=== PATIENT | male | born 1955 | race Caucasian/White ===

== ENCOUNTER 2023-07-19 14:06 | Inpatient (IN) | payer MEDICARE, SELFPAY ==
[2023-07-19] VITALS (15 sets, daily range): BP systolic 82–159; BP diastolic 77–114
[2023-07-19 11:21] LABS: % Basophils 0.5 % (0-2); % Eosinophils 1.2 % (0-6); % Immature Granulocytes 0.2 % (0-0.5); % Monocytes 7.5 % (1.7-9.3); % Neutrophils 74.6 % (42.2-75.2); Absolute Eosinophils 0.1 10^3/uL (0-0.7); Absolute Lymphocytes 1.4 10^3/uL (1.2-3.4); Absolute Monocytes 0.7 10^3/uL (0.1-0.6); Absolute Neutrophils 6.5 10^3/uL (1.4-6.5); Hematocrit 48.9 % (39.0-52.0); Hemoglobin 16.8 g/dL (13.0-18.0); Mean Corp Hgb Conc. 34.4 g/dL (33.0-37.0); Mean Corpuscular Hgb 31.2 pg (27.0-31.0); Mean Corpuscular Volume 90.7 fL (80.0-94.0); Mean Platelet Volume 9.8 fL (7.4-10.4); Nucleated Red Blood Cells % 0 % (-); Platelet Count 188 10^3/uL (130-400); Red Blood Cell Count 5.39 10^6/uL (4.70-6.10); Red Cell Dist. Width 11.8 % (11.5-14.5); White Blood Cell Count 8.7 10^3/uL (4.8-10.8)
--- NOTE | 2023-07-19 11:23 | ED.GENMED ---
History of Present Illness
General
Chief Complaint: Breathing Problem
Time Seen by Provider: 07/19/23 11:04
Travel History
Have you had any contact with someone who has COVID-19?: Yes
Comment: shortness of breath
Do you have any symptoms of coronavirus? Fever > 100 degrees, chills, cough, shortness of breath, sore throat, loss of taste or smell, muscle aches, or headache?: Yes
Symptoms:: shortness of breath
History of Present Illness
History of Present Illness:
68-year-old male with history of hypertension presents to the emergency department for evaluation of shortness of breath particular with exertion over the past 1 to 2 days. He notes that approximate 8 days ago he developed flulike symptoms and
tested positive for COVID-19 the following day. He felt profoundly short of breath over the past 2 days with any minimal exertion, was noted to be saturating in the 70s on room air with exertion by EMS. Arrives on 4 L nasal cannula in the mid 90s.
He denies any chest pain at this time. Flulike symptoms have improved. Denies any productive cough. No leg swelling or recent prolonged travel/prolonged immobilization.
Past History
Past History
ED Past Medical History: HTN, Hypercholesterolemia and Other (BPH, diverticulosis)
ED Past Surgical History: Tonsilectomy
Social History
Tobacco: Non-smoker
Alcohol: None
Drug: None
Personal:
Living: with family
Employment: Employed
Review of Systems
Review of Systems
Allergies reviewed?: Yes
All Other Systems: ROS reviewed and negative except as documented in HPI and ROS
Phy Exam
Physical Exam
Physical Exam:
GEN: Well appearing, NAD, WDWN
Eyes: PERRLA, EOMs intact, no scleral icterus
HENT: NCAT, oral mucosa moist
Lungs: CTAB, no wheezes, rales, rhonchi, normal chest wall excursion
Cardiac: RRR, no M/R/G, no peripheral edema. Radial pulses 2+ bilat
Abdomen: S, NT, ND, NABS, no masses or hepatosplenomegaly
Neuro: AO x 3, no focal deficits to BUE/BLE, normal sensation throughout
MSK: No gross deformity or ecchymosis.
Skin: No rashes, petechiae. Normal color, no pallor or jaundice.
Psych: Calm, cooperative, proper hygiene
Scores
Heart Failure Risk
Heart Failure Risk Score: Not Applicable
Course
Orders/Labs/Results
Orders:
Orders
07/20/22 06:00
Echo 2D MMode Color/Doppler Urgent
Reason for Study: Saddle PE; need to eval right sided pressures
Comment: pt not available 07/19/23 in [facility]
07/19/23 11:07
Electrocardiogram (*1) Urgent
Reason for Study: Shortness of Breath
EKG- Treatment ONCE
07/19/23 11:08
CMP [Comprehensive Metabolic Panel] Urgent
Complete Blood Count/With Diff Urgent
07/19/23 11:15
CR Chest - 2 Views Urgent
Comment:
Reason For Exam: SOB, COVID +
07/19/23 11:18
NT-proBNP Urgent
Troponin I Urgent
07/19/23 11:57
CT Chest Pe Study Urgent
Comment:
Reason For Exam: hypoxia, clear CXR, COVID +
07/19/23 13:11
PTT Stat
Prothrombin Time Stat
Heparin 8,000 units IV NOW STA
Nursing to Place Non Medication Order As Directed
Physician Order: PTT 6 hours after initial start of Heparin infusion
Above order entered?: Yes
07/19/23 13:15
Heparin 84163 Units/250 ml 25,000 units in 250 ml IV PER PROTOCOL
Weight to be used for heparin protocol in kilograms (kg):: 100.2
Protocol:: DVT/PE
PTT Goal Range to be used:: PTT 73 to 111 seconds
Order type:: Initial
INITIAL Infusion Dose (UNITS/KG/hr) & then follow protocol:: 18 units/kg/hr
Infusion Dose in UNITS/hr & then follow protocol (UNITS/hr):: 1,800
INFUSION RATE in mL/hr & then follow protocol (mL/hr):: 18
For DVT/PE algorithm, re-bolus for low PTT?: Yes
PTT less than or equal to 64 seconds:: Re-bolus 80 units/kg (max 10,000units). Increase by 400 units/hr
(+ 4mL/hr)
PTT 64.1 to 72.9 seconds:: Re-bolus 40 units/kg (max 5,000 units). Increase by 200 units/hr
(+ 2mL/hr)
PTT 73 to 111 seconds:: Target Range. No change in rate.
PTT 111.1 to 130.9 seconds:: Decrease rate by 200 units/hr (- 2 mL/hr)
PTT 131 to 199.9 seconds:: HOLD for 1 hr. Then decrease by 300 units/hr (- 3mL/hr)
PTT greater than or equal to 200 seconds:: HOLD for 2 hrs & Notify Provider. Then decrease by 400 units/hr
(- 4mL/hr)
Lab follow-up:: Each change, PTT q6h until 2 consecutive are therapeutic. Then
PTT daily.
07/19/23 13:17
Heparin 8,000 units IV PRN PRN
07/19/23 13:18
Heparin 4,000 units IV PRN PRN
07/19/23 13:30
Venous Doppler Lwr Ext Bilat [US Periph Venous LOWER Ext Paul] Urgent
Comment:
Reason For Exam: Saddle PE, need to assess for DVT
07/19/23 13:51
Admit/Transfer Patient As Directed
Co-Sign Provider:
Level of Care: Inpatient admission
Assign to:: ICU
Physician / Group: pasricha/medicine
Diagnosis: saddle pe
Reason for Hospitalization: saddle pe
Expected length of stay greater than two midnights?: Yes
ELOS- Estimated Length of Stay in days: 3
I certify the patient meets the requirements for IP care: Yes
07/19/23 13:54
Code Status As Directed
Resuscitation Status: Full Code
07/19/23 14:00
[facility] CONSULT Urgent
Consulting Provider: Ryan La
Was physician already notified: Yes
Reason for consult: saddle PE
Flush (0.9% Sodium Chloride) [Flush (Nss)] See Dose Instructions IV PER PROTOCOL
07/19/23 19:20
PTT Urgent
Abnormal Lab Results
07/19/23 07/19/23
11:08 11:18
MCH 31.2 H pg
(27.0-31.0)
Absolute Monos (auto) 0.7 H 10^3/uL
(0.1-0.6)
Lymphocytes % 16.0 L %
(20.5-51.1)
Glucose 179 H mg/dl
(70-99)
Troponin I 0.100 H* ng/ml
07/19/23 11:08
07/19/23 11:08
Vital Signs
Initial and Last Documented VS:
Initial Vital Signs
Temp Pulse Resp Pulse Ox
97.7 F 72 20 86
07/19/23 11:04 07/19/23 11:04 07/19/23 11:04 07/19/23 11:04
Last Documented Vital Signs
Temp Pulse Resp BP Pulse Ox
98.1 F 82 16 120/88 96
07/19/23 18:00 07/19/23 18:00 07/19/23 18:00 07/19/23 18:00 07/19/23 18:00
MDM/Problems Addressed
MDM/Problems Addressed:
68-year-old male presents with worsening shortness of breath over the past week after being diagnosed with COVID-19. Exam patient's lungs are clear initial chest x-ray independently interpreted by me is negative for acute pathology. Given the
clear lungs and the marked degree of hypoxia prehospital concern was immediately transitioned to pulmonary embolism. The patient was sent urgently for a CT of the chest which revealed a saddle pulmonary embolism. Case was then promptly reviewed
with interventional radiology as well as oil well cable tool driller/pulm, we are in agreement that the patient is a good candidate for/thrombolysis. Will be admitted to the hospitalist service for further management, heparin was started initially in the emergency
department to be continued until the procedure
*Critical Care Note
Total Time (30-74mins, 75-104mins- exclusive of procedures): 60 minutes
comment:
Critical care time: 60 minutes
Critical care time was exclusive of: Separately billable procedures, treating other patients, and teaching time
Critical care was necessary to treat or prevent imminent or life-threatening deterioration of the following conditions: Saddle pulmonary embolism
Critical care time spent personally by me on the following activities:
[x] Review of old charts
[x] Obtaining history from patient or surrogate
[x] Ordering and review of the laboratory studies
[x] Ordering and review of radiographic studies
[x] Ordering and performing treatments and interventions
[x] Patient patient's response to treatment
[x] Development of treatment plan with patient or surrogate
Update Note
Update Note:
1308: PE study reviewed by myself concerning for saddle PE. PERT alert called by community specialist
1313: [employer] message sent to both IR and pulm operations supervisor regarding saddle PE. Pt remains hemodynamically stable, may be suitable for thrombolysis
1315: Radiology confirms saddle PE w/ RV strain
1327: Still awaiting word regarding thrombolysis decision from pulm/IR. Hospitalist updated as pt will need ICU bed.
ED Attending Note
-
Portions of this chart may have been created with voice recognition software.� Occasional wrong word or��sound alike� substitutions may have occurred due to the inherent limitations of voice recognition software.
Discharge Plan
Departure
Patient Disposition: Admit
Date of Disposition: 07/19/23
Time of Disposition: 13:28
Admit to: ICU
Presentation/result/management discussed w/ accepting MD/DO: Hospitalist
Discharge Problem:
Acute saddle pulmonary embolism
Interventions
Interventions:
*Risk Screen - Suicide Last Done: 07/19/23 11:05
*General Assessment Last Done: 07/19/23 11:05
*Neglect/Abuse Screening Last Done: 07/19/23 11:05
*ED COVID-19 Vaccine History Last Done: 07/19/23 11:05
ED- Cardiac Assessment Last Done: 07/19/23 11:06
ED- Pulmonary Assessment Last Done: 07/19/23 11:06
[2023-07-19 11:34] LABS: ALT (SGPT) 28 U/L (0-50); AST (SGOT) 28 U/L (17-59); Albumin 4.2 g/dl (3.5-5.0); Alkaline Phosphatase 108 U/L (38-126); Blood Urea Nitrogen 14 mg/dl (9-20); Calcium 9.2 mg/dl (8.4-10.2); Carbon Dioxide 25 mmol/L (22-30); Chloride 105 mmol/L (98-107); Estimated Creatinine Clearance 98 ml/min; Glucose 179 mg/dl (70-99); Potassium 4.6 mmol/L (3.5-5.1); Sodium 135 mmol/L (135-145); Total Bilirubin 1.3 mg/dl (0.2-1.3); Total Protein 7.1 g/dl (6.3-8.2); eGFR > 60.00
[2023-07-19 11:52] LABS: NT-proBNP 215 pg/ml
--- NOTE | 2023-07-19 13:07 | ED TECH ---
A PERT ALERT was called #[id number]# Per ( [facility]) @13:08 PM.
[2023-07-19] MEDS: HEPARIN 8000 UNITS IV ×2 (13:18→20:33)
--- NOTE | 2023-07-19 13:18 | CON.INTV ---
Addendum entered and electronically signed by Zev Bowen MD 07/19/23 18:07:
Discussed case with IR. Pt underwent suction embolectomy of left sided thrombus. No TPA infusion started and no tPA given. Pt ok for admission to telemetry, and again, pulmonary service will follow along.
Original Note:
Consultation
Consultation Request
Date/Time Consultation Requested: 07/19/20231307
Date/Time Consultation Performed: 07/19/2023 - 1319
Requesting Provider: GAVINO Vega
Performing Provider: Dr. Bowen
Reason for Consultation: PERT alert
Medical History
-
Chief Complaint: SOB
History of Present Illness:
68 old male with past med history of recent COVID-19 (about 1 week ago) who presents with shortness of breath. Per EMS, patient was hypoxic to the 70s and required 4 L/min nasal cannula with resulting SpO2 95%. In the ER patient required 3 L/min
nasal cannula with SpO2 95%, BP 136/98, RR: 20, HR: 72 and afebrile to 97.7 �F. Patient was in respiratory distress at rest. Initial CXR showed no evidence of acute cardiopulmonary process. CTA chest was positive for bilateral/saddle pulmonary
embolism with large embolic burden and evidence of RV strain. Labs were significant for elevated troponin of 0.1, proBNP was elevated to 15, Hb was 16.8, platelet count 188. Patient started on heparin infusion and a PERT alert was called.
[employer]/pulmonary services consulted for additional recommendations.
When I saw the patient he was in bed, at bedside, BP 159/114, heart rate 77 and saturating 96% on room air. He says that he had COVID about 1 week ago that was treated with Paxlovid. During that time he was extremely fatigued, short of breath
with reduced exercise tolerance. There were several days where he was excessively sedentary. He normally is an active man, and for the last few months was even helping his daughter move and was able to walk up and down steps without any issues.
He says that he started to feel better about 3 days ago, but for the last 2 days he had fatigue and then today he developed severe lightheadedness with exertion and that's what led him to come into the ER. He denies any personal history of VTE,
denies personal history of malignancy, no recent plane rides and no recent long car trips.
PMHx: History of diverticulosis, hypertension, BPH, recent COVID-19 infection, history of palpitations, fluid in ear s/p drainage tubes
PSHx: Tonsillectomy
Past Medical History
Past Medical History: Other (Above as per HPI)
Past Surgical History: Other (Above as per HPI)
Social History
Tobacco: Non-smoker
Alcohol: None
Drug: None
Family History
Family History: Reviewed & Not Pertinent
Allergies / Home Medications
Allergies
Allergy/AdvReac Type Severity Reaction Status Date / Time
No Known Allergies Allergy Verified 10/28/20 08:58
Home Medications
Medication Instructions Recorded Confirmed Last Taken Type
hydrocodone 5 mg-acetaminophen 325 1 tab PO Q4HPRN PRN severe pain 10/06/15 Unknown Rx
mg tablet #10 tabs
Review of Systems
-
History Source: Patient
All other systems: Negative unless noted (12 point ROS performed and is negative unless mentioned above.)
Vitals / Labs / Diagnostic Testing
Vital Signs
Temp Pulse Resp BP Pulse Ox
97.7 F 72 20 136/98 95
07/19/23 11:04 07/19/23 12:30 07/19/23 12:30 07/19/23 11:54 07/19/23 12:30
Lab Data
07/19/23 11:08
07/19/23 11:08
Diagnostic Testing:
Physical Exam
-
HEENT: Normocephalic and Anicteric
Cardiovascular: S1/S2, Peripheral Edema (Negative) and Calf Tenderness (Negative)
Respiratory: Clear, Wheeze (Negative), Rales (Negative) and Rhonchi (Negative)
GI: Soft, Non Distended and Non Tender
Neurology: AO x 3 and No Motor Deficits
Skin: Warm and Dry
General: Comfortable and Chills (Negative)
Assessment
-
Assessment: 68 old male with past med history of recent COVID-19 (about 1 week ago) who presents with shortness of breath. Per EMS, patient was hypoxic to the 70s and required 4 L/min nasal cannula with resulting SpO2 95%. In the ER patient
required 3 L/min nasal cannula with SpO2 95%, BP 136/98, RR: 20, HR: 72 and afebrile to 97.7 �F. Patient was in respiratory distress at rest. Initial CXR showed no evidence of acute cardiopulmonary process. CTA chest was positive for
bilateral/saddle pulmonary embolism with large embolic burden and evidence of RV strain. Labs were significant for elevated troponin of 0.1, proBNP was elevated to 15, Hb was 16.8, platelet count 188. Patient started on heparin infusion and a PERT
alert was called. [employer]/pulmonary services consulted for additional recommendations.
Chronic medical conditions [employer] P[employer]: History of diverticulosis, hypertension, BPH, recent COVID-19 infection
Impression:
#Submassive saddle pulmonary embolism with high risk features including radiographic/chemical evidence of RV strain
#Elevated troponin -likely type II IA in the setting of acute saddle PE
#Acute hypoxic respite failure due to PE
#Recent COVID-19 infection
Plan:
- Systemic AC --> currently on heparin gtt
- I recommend catheter-directed thrombolysis vs suction thrombectomy --> defer final decision to IR
- Trend troponin until begins to downtrend
- Check TTE to assess RV function
- Check LE duplex
- Maintain MAP>65
- Monitor for any sudden drop in SBP >15-20% or sudden rise in HR >120bpm as this could indicate developing obstructive shock
- Replete K>3.5, Mg>1.8, PO4>3
- DVT ppx
Critical care statement: A total of 40 minutes of critical care time was provided for this patient today. This includes management of unstable vital signs, evaluation of the patient at bedside, reviewing the patient's pertinent medical records
including radiographs, microbiology, laboratory evaluations, and discussion with primary team, consultants, pharmacy, nutrition, physical therapy, case management, charge nurse, critical care nursing, and respiratory therapy.
Data:
CXR 07-19-2023: No active cardiopulmonary disease.
CTA Chest 07-19-2023: Examination is positive for bilateral pulmonary embolism, with large embolic burden. Evidence for right heart strain with enlargement of the right ventricle and straightening of the interventricular septum.
[2023-07-19] MEDS: HEPARIN 25000 UNITS/250 ML IV (13:20)
[2023-07-19 13:38] LABS: INR 1.02; PT 13.2 Sec (11.4-14.6)
--- NOTE | 2023-07-19 15:45 | HPS.HSE ---
Family Physician
-
Family Physician: Armand Delgadillo
Chief Complaint
-
Dizziness, lightheadedness with exertion, shortness of breath
History of Present Illness
68 old male with past med history of recent COVID-19 (about 1 week ago), diverticulosis, hypertension, BPH, history of palpitations, fluid in ear s/p drainage tubes now presents for shortness of breath. Patient found to have SARS-CoV-2 1 week ago,
treated with Paxlovid. Patient has symptoms of fatigue, shortness of breath with exertion. Patient did remain sedentary. Patient started feeling better although upon ambulation today, started feeling severely lightheaded with exertion which
prompted hospital evaluation. Baseline exercise tolerance is able to walk up and down stairs without any issues. En route to the hospital, EMS reported hypoxia to 70% requiring 4 L nasal cannula. Patient 95% on 3 L upon evaluation, blood pressure
136/98, respirate 20, heart rate 72, afebrile. CTA was done showing bilateral/saddle pulmonary embolism with large embolic burden and evidence of RV strain. Troponin 0.1, proBNP 215. PERT alert was initiated. After discussion, review of images
and vitals, plan was for thrombolytic therapy.
Medical History
Past Medical History
Past Medical History: Reports Other (diverticulosis, hypertension, BPH, history of palpitations, fluid in ear s/p drainage tubes)
Past Surgical History: Reports Other (Tonsilectomy)
Social History
Tobacco: Non-smoker
Alcohol: None
Personal:
Living: With Family
Employment: Employed
Family History
Family History: Not pertinent
Allergies / Home Medications
Allergies reflects when Allergies were last updated in [employer].
Home Medications with original date entered in [employer]
Allergy/Medication List:
Allergies
Allergy/AdvReac Type Severity Reaction Status Date / Time
No Known Allergies Allergy Verified 10/28/20 08:58
Home Medications
ascorbic acid (vitamin C) 500 mg tablet (Vitamin C) 500 mg PO DAILY Supplement 07/19/23
carvedilol 25 mg tablet (Coreg) 25 mg PO BID Blood Pressure 07/19/23
coQ10 (ubiquinol) 100 mg capsule 100 mg PO DAILY Supplement 07/19/23
finasteride 5 mg tablet 5 mg PO QPM Urinary Issue 07/19/23
losartan 50 mg tablet 50 mg PO QPM Blood Pressure 07/19/23
milk thistle 500 mg capsule 500 mg PO DAILY Supplement 07/19/23
omega 8-utf-fia-fish oil 1,000 mg (120 mg-180 mg) capsule (Fish Oil) 1 cap PO DAILY Supplement 07/19/23
omega 6-jtu-qqx-fish oil 1,000 mg (120 mg-180 mg) capsule (Fish Oil) 2 cap PO QPM Supplement 07/19/23
simvastatin 20 mg tablet (Zocor) 20 mg PO QPM High Cholesterol 07/19/23
therapeutic multivitamin 1 tab PO DAILY Supplement 07/19/23
Review of Systems
-
History Source: Patient
A 12 point ROS was completed and negative except as noted: Yes
Physical Exam
Vital Signs
Vital Signs
Temp Pulse Resp BP Pulse Ox
97.7 F 72 20 136/98 95
07/19/23 11:04 07/19/23 12:30 07/19/23 12:30 07/19/23 11:54 07/19/23 12:30
Physical Exam
General: Well Developed, Well Nourished and No Apparent Distress
HEENT: NormoCephalic
Respiratory: Clear and Other (Tachypneic)
Cardiac: S1/S2
GI: Soft
Musculoskeletal: No Clubbing
Skin: Warm
Neuro: Awake, Alert, Oriented and AO x 3
Hematologic/Lymphatic: No Lymphadenopathy
Psych: Calm
Laboratory Results
-
07/19/23 11:08
07/19/23 11:08
Laboratory Results
PT 13.2 Sec (11.4-14.6) 07/19/23 13:11
INR 1.02 07/19/23 13:11
APTT 34.0 Sec (23.4-35.0) 07/19/23 13:11
Total Bilirubin 1.3 mg/dl (0.2-1.3) 07/19/23 11:08
AST 28 U/L (17-59) 07/19/23 11:08
ALT 28 U/L (0-50) 07/19/23 11:08
Alkaline Phosphatase 108 U/L (38-126) 07/19/23 11:08
Troponin I 0.100 ng/ml H* 07/19/23 11:18
Data Reviewed
-
Diagnostic Radiology: Image Personally Visualized and interpreted and Report Reviewed by me
CT Scan: Image Personally Visualized and interpreted and Report Reviewed by me
Lab Data: Labs Reviewed by me
Impression/Plan
-
IMPRESSION:
68 old male with past med history of recent COVID-19 (about 1 week ago), diverticulosis, hypertension, BPH, history of palpitations, fluid in ear s/p drainage tubes now presents for shortness of breath. Found to have saddle PE with RV strain.
PLAN:
#Acute hypoxic respiratory failure
#Submassive pulm embolism
#Saddle pulm embolism
� RV strain on CT imaging
� Follow-up echo
� Trend troponins
� IR consulted, PERT alert
� Defer decision of catheter directed tPA versus suction thrombectomy as per IR
� Lower extremity Dopplers for completeness
� Ensure MAP greater than 65, add pressors if needed; also if heart rate increases, if over 120, please alert ICU team, pulmonary, will have to initiate pressors
� Heparin drip
#Hypertension
� Hold antihypertensives
#BPH
� Continue continue finasteride
#Hyperlipidemia
� Hold statin for now
#DVT prophylaxis
� Heparin drip
--- NOTE | 2023-07-19 17:49 | W.PN.UPDATE ---
Update Note
Progress Note Update
Pulmonary arteriogram showed large saddle embolus, emboli in both main PAs. PA pressure 39/16 (mean 24).
Suction embolectomy performed on left with removal of all central embolus. Right side could not be done due to difficult anatomy. No tpa was given.
Heparin was held at 1730 for sheath removal. OK to restart at 1930.
Bedrest until 2029.
Updated patient and his .
--- NOTE | 2023-07-19 19:40 | PTCARENOTE ---
Pt admitted to room 2127 from IR at 1939, was slid gently into his bed with assistx3, bed kept flat until 2029. Small foam dressing over right femoral puncture site noted with small amount of dry blood stain underneath, no active bleeding noted. Pt
has no complains at this time. O2 via NC at 3L/min. VSS, MAP>65 and HR< 120. Pt oriented to room and call light. Lab was called for PTT to be drawn in order to restart heparin infusion.
--- NOTE | 2023-07-19 20:30 | PTCARENOTE ---
Ptt results came back as 60, 8000 units bolus given and heparin restarted at 2200unit/hr, + 400 units from his initial rate 1800unit/hr. Troponin came back as critical 0.689, HEAD LOFT WORKER space operations officer made aware, no new orders. Pt offeres no c/o cp or SOB at
this time. VSS.
[2023-07-19 21:21] LABS: Troponin I 0.689 ng/ml
[2023-07-19] MEDS: PROSCAR 5 MG PO (21:35)
[2023-07-19] MEDS: TYLENOL 650 MG PO (21:35)
--- NOTE | 2023-07-19 23:34 | PTCARENOTE ---
Pt placed on COVID precautions until being cleared by ID, stating that tested covid + 07/13/2023.
[2023-07-20] VITALS (7 sets, daily range): BP systolic 107–142; BP diastolic 75–92; BMI 27.6
[2023-07-20 02:14] LABS: Hematocrit 43.5 % (39.0-52.0); Hemoglobin 15.5 g/dL (13.0-18.0); Mean Corp Hgb Conc. 35.6 g/dL (33.0-37.0); Mean Corpuscular Hgb 31.3 pg (27.0-31.0); Mean Corpuscular Volume 87.7 fL (80.0-94.0); Mean Platelet Volume 9.8 fL (7.4-10.4); Platelet Count 201 10^3/uL (130-400); Red Blood Cell Count 4.96 10^6/uL (4.70-6.10); Red Cell Dist. Width 11.9 % (11.5-14.5); White Blood Cell Count 9.3 10^3/uL (4.8-10.8)
[2023-07-20 02:40] LABS: Troponin I 0.407 ng/ml
[2023-07-20 02:42] LABS: APTT > 200 Sec (23.4-35.0)
[2023-07-20 02:58] LABS: ALT (SGPT) 22 U/L (0-50); AST (SGOT) 29 U/L (17-59); Albumin 3.6 g/dl (3.5-5.0); Alkaline Phosphatase 96 U/L (38-126); Blood Urea Nitrogen 17 mg/dl (9-20); Calcium 8.8 mg/dl (8.4-10.2); Carbon Dioxide 24 mmol/L (22-30); Chloride 109 mmol/L (98-107); Estimated Creatinine Clearance 113 ml/min; Glucose 125 mg/dl (70-99); Sodium 136 mmol/L (135-145); Total Bilirubin 1.2 mg/dl (0.2-1.3); Total Protein 6.6 g/dl (6.3-8.2); eGFR > 60.00
[2023-07-20 03:40] LABS: Potassium 4.2 mmol/L (3.5-5.1)
[2023-07-20] MEDS: HEPARIN 25000 UNITS/250 ML IV (07:43)
--- NOTE | 2023-07-20 08:08 | W.PN.GENERIC ---
Assessment / Plan
-
68 yo male with recent Covid infection found to have saddle PE on CTA of chest. He underwent PE thrombectomy in IR
Recommend PO AC and hematology follow up
Physician Progress Note
Subjective
68 yo male with recent history of Covid was admitted yesterday for SOB and found to have a large saddle PE. He underwent PE thrombectomy in IR yesterday. Pt denies chest pain and reports that he is less SOB.
Objective
Vital Signs
Temp Pulse Resp BP Pulse Ox
97.3 F 68 20 108/75 100
07/20/23 03:00 07/20/23 03:00 07/20/23 03:00 07/20/23 03:00 07/20/23 03:00
Lab Results
07/20/23 02:07
07/20/23 02:07
This is a 68 yo male in NAD lying in bed. Heart is regular. Lungs are CTA. Abdomen is soft with bowel sounds. Palpable inguinal and pedal pulses. No calf edema.
[2023-07-20 08:50] LABS: Troponin I 0.205 ng/ml
--- NOTE | 2023-07-20 09:54 | W.PN.PUL3 ---
Today's Communication / Plan
-
s/p suction thrombectomy on L by IR
Weaned to RA, can obtain home O2 eventually
Transition IV heparin to OAC per team
ECHO pending
Reports he self tested neg, can likely d/c isolation
Outpatient pulmonary FU recommended
Assessment
-
68 old male with past med history of recent COVID-19 (about 1 week ago) who presents with shortness of breath.� Per EMS, patient was hypoxic to the 70s and required 4 L/min nasal cannula with resulting SpO2 95%.� In the ER patient required 3 L/min
nasal cannula with SpO2 95%, BP 136/98, RR: 20, HR: 72 and afebrile to 97.7 �F.� Patient was in respiratory distress at rest.� Initial CXR showed no evidence of acute cardiopulmonary process.� CTA chest was positive for bilateral/saddle pulmonary
embolism with large embolic burden and evidence of RV strain.� Labs were significant for elevated troponin of 0.1, proBNP was elevated to 15, Hb was 16.8, platelet count 188.� Patient started on heparin infusion and a PERT alert was called.�
Air Brush Artist/pulmonary services consulted for additional recommendations.
Impression:
Submassive saddle pulmonary embolism with high risk features including radiographic/chemical evidence of RV strain
Elevated troponin -likely type II MA in the setting of acute saddle PE
Acute hypoxic respite failure due to PE
Recent COVID-19 infection
RLE DVT
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
History of diverticulosis
Hypertension
BPH
Overweight
Plan:
Placed on 3L NC, weaned to RA
Not known to be on home O2
Home O2 eval can be obtained if needed
No prior known history of lung disease
New PE noted, s/p successful suction thrombectomy by IR 07/19/23 of left main with reduction of burden of saddle PE
R side could not be accessed, resumed on IV heparin
Can be eventually transitioned to OAC
Trend troponin until begins to downtrend
Maintain MAP>65
Monitor for any sudden drop in SBP >15-20% or sudden rise in HR >120bpm as this could indicate developing obstructive shock
Replete K>3.5, Mg>1.8, PO4>3
Check TTE to assess RV function
Check LE duplex--RLE DVT noted
We discussed role of OAC and eventual outpatient pulmonary FU for further management
Can obtain PFT/6MWT in office
Can eval sleep risk, HST as OP as well
Recent COVID illness, we discussed independent risk for VTE associated with this
Denies prior history of VTE, family history
Notes that he tested negative at home prior to arrival, can likely d/c isolation
Reviewed plan with patient
Diagnostic Data
CXR 07-19-2023:�No active cardiopulmonary disease.
CTA Chest 07-19-2023:�Examination is positive for bilateral pulmonary embolism, with large embolic burden. Evidence for right heart strain with enlargement of the right ventricle and straightening of the interventricular septum.
Subjective Data
-
Date of Service:
Date of Service: July 20, 2023
Chief Complaint: Pulmonary Follow Up
Subjective:
patient seen and examined, no acute events on
offers no new complaints
remains in isolation for COVID, home test +
Objective Data
Data Reviewed
Vital Signs / I&O / Oxygen:
Vital Signs
Temp Pulse Resp BP Pulse Ox
97.8 F 71 18 120/78 96
07/20/23 07:35 07/20/23 07:35 07/20/23 07:35 07/20/23 07:35 07/20/23 07:35
Intake and Output
07/19/23 07/20/23 07/21/23
06:59 06:59 06:59
Intake Total 636 / 636
Output Total 500 / 500
Balance 136 / 136
SaO2 96
Nasal Cannula flow liters per 3
minute
Physical Exam
General: Comfortable and Other (NAD)
HEENT: Normocephalic, Anicteric and Moist Mucous Membranes
Cardiovascular: S1-S2 and Regular Rhythm
Respiratory: Clear and Non-Labored Respirations
GI: Soft, Non Distended, Non Tender and Normal Bowel Sounds
Neurology: Awake, Alert, Oriented, AO x 3 and No Motor Deficits
Skin: Warm, Dry and Good Color
Labs/Micro/Reports
Lab Data
07/20/23 02:07
07/20/23 02:07
Laboratory Results
07/19/23 07/19/23 07/20/23
13:11 20:09 02:07
PT 13.2
INR 1.02
APTT 34.0 60.0 H > 200 H*
[2023-07-20 11:11] LABS: APTT 132.8 Sec (23.4-35.0)
--- NOTE | 2023-07-20 12:51 | CM ---
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
is POA, , son and daughter are support system, Pharmacy is [place] in [facility] and PCP is Dr. Medhat Candelaria. Anticipate no needs at discharge. Patient in agreement.
--- NOTE | 2023-07-20 14:32 | W.PN.HOSP.TC ---
Today's Communication/Plan
-
Echo
Nausea with hours
PT/OT
Wean O2
Heparin drip
Assessment / Plan
Assessment / Plan
Physical Exam
General: Well Developed, Well Nourished and No Apparent Distress
HEENT: NormoCephalic
Respiratory: Clear and Other (Tachypneic)
Cardiac: S1/S2
GI: Soft
Musculoskeletal: No Clubbing
Skin: Warm
Neuro: Awake, Alert, Oriented and AO x 3
Hematologic/Lymphatic: No Lymphadenopathy
Psych: Calm
68 old male with past med history of recent COVID-19 (about 1 week ago), diverticulosis, hypertension, BPH, history of palpitations, fluid in ear s/p drainage tubes now presents for shortness of breath. Found to have saddle PE with RV strain.
PLAN:
#Acute hypoxic respiratory failure
#Submassive pulm embolism
#Saddle pulm embolism
-S/p thrombectomy by interventional radiology 07/19
� RV strain on CT imaging
� Follow-up echo
� Lower extremity Dopplers for completeness
� Ensure MAP greater than 65, add pressors if needed; also if heart rate increases, if over 120, please alert ICU team, pulmonary, will have to initiate pressors
� Heparin drip, transition over to Eliquis, $47 monthly upon discharge
�Wean O2 as tolerated
#Hypertension
� Hold antihypertensives
#BPH
� Continue continue finasteride
#Hyperlipidemia
� Hold statin for now
#DVT prophylaxis
� Heparin drip
Anticipated Discharge: Within 24 hours
Subjective/Interval History
-
Date of Service: July 20, 2023
Successful thrombectomy
Objective Data
-
Labs:
Laboratory Results
07/20/23 07/20/23 07/20/23
02:07 10:27 18:20
APTT > 200 H* 132.8 H Pending
Sodium 136
Potassium 4.2
Chloride 109 H
Carbon Dioxide 24
BUN 17
Creatinine 0.7
Glucose 125 H
Calcium 8.8
Total Bilirubin 1.2
AST 29
ALT 22
Alkaline Phosphatase 96
Vital Signs:
Vital Signs
Temp Pulse Resp BP Pulse Ox
97.9 F 69 18 127/79 96
07/20/23 11:47 07/20/23 11:47 07/20/23 11:47 07/20/23 11:47 07/20/23 11:47
I&O
07/19/23 07/20/23 07/21/23
06:59 06:59 06:59
Intake Total 636 / 636
Output Total 500 / 500 150 / 150
Balance 136 / 136 -150 / -150
Review of Systems
-
History Source: Patient
All other systems: Not reviewed unless documented
Data Reviewed
-
CT Scan: Image personally visualized and interpreted and Report Reviewed by me
Labs: Labs Reviewed by me
[2023-07-20] MEDS: PROSCAR 5 MG PO (18:03)
[2023-07-20 18:28] LABS: APTT 140.5 Sec (23.4-35.0)
[2023-07-21 01:18] LABS: Hematocrit 41.5 % (39.0-52.0); Hemoglobin 14.6 g/dL (13.0-18.0); Mean Corp Hgb Conc. 35.2 g/dL (33.0-37.0); Mean Corpuscular Hgb 31.2 pg (27.0-31.0); Mean Corpuscular Volume 88.7 fL (80.0-94.0); Mean Platelet Volume 9.7 fL (7.4-10.4); Platelet Count 219 10^3/uL (130-400); Red Blood Cell Count 4.68 10^6/uL (4.70-6.10); Red Cell Dist. Width 12.1 % (11.5-14.5); White Blood Cell Count 7.8 10^3/uL (4.8-10.8)
[2023-07-21 01:34] LABS: APTT 88.7 Sec (23.4-35.0)
[2023-07-21 01:44] LABS: Blood Urea Nitrogen 20 mg/dl (9-20); Calcium 8.4 mg/dl (8.4-10.2); Carbon Dioxide 27 mmol/L (22-30); Chloride 105 mmol/L (98-107); Estimated Creatinine Clearance 98 ml/min; Glucose 124 mg/dl (70-99); Potassium 4.1 mmol/L (3.5-5.1); Sodium 136 mmol/L (135-145); eGFR > 60.00
[2023-07-21 03:23] VITALS: BP 140/88
[2023-07-21] MEDS: HEPARIN 25000 UNITS/250 ML IV (03:34)
[2023-07-21 07:04] VITALS: BP 144/88
[2023-07-21 08:18] LABS: APTT 64.5 Sec (23.4-35.0)
[2023-07-21] MEDS: HEPARIN 4000 UNITS IV (09:50)
[2023-07-21 10:05] VITALS: BP 146/93; BP 150/93; PULSE 77; O2SAT 96
--- NOTE | 2023-07-21 10:53 | W.PN.HOSP.TC ---
Addendum entered and electronically signed by Andi Flores MD 07/21/23 15:52:
[id number]
Original Note:
Today's Communication/Plan
-
Eliquis for DVT/PE
F/u pcp, pulm outpatient
no strenuous activity at least 2 weeks; f/u with pcp/pulm outpatient
Assessment / Plan
Assessment / Plan
Physical Exam
General: Well Developed, Well Nourished and No Apparent Distress
HEENT: NormoCephalic
Respiratory: Clear and Other (Tachypneic)
Cardiac: S1/S2
GI: Soft
Musculoskeletal: No Clubbing
Skin: Warm
Neuro: Awake, Alert, Oriented and AO x 3
Hematologic/Lymphatic: No Lymphadenopathy
Psych: Calm
68 old male with past med history of recent COVID-19 (about 1 week ago), diverticulosis, hypertension, BPH, history of palpitations, fluid in ear s/p drainage tubes now presents for shortness of breath. Found to have saddle PE with RV strain.
PLAN:
#Acute hypoxic respiratory failure
#Submassive pulm embolism
#Saddle pulm embolism
#DVT
-S/p thrombectomy by interventional radiology 07/19
� RV strain on CT imaging
� Lower extremity Dopplers positive for Rt DVT
� Heparin drip, transition over to Eliquis, $47 monthly upon discharge
�Weaned off o2
-ECHO: Normal left ventricular size, wall thickness and systolic function.
�Estimated ejection fraction is 55-60%.
�Mild to moderate tricuspid regurgitation.
�Estimated pulmonary artery pressure of 45-50 mmHg assuming a right atrial
�pressure of 3 mmHg.
�-no strenous activity for 2 weeks; f/u pcp/pulm outpatient
#Hypertension
� can resume coreg, hold ACEI until cleared by pcp
#BPH
� Continue continue finasteride
#Hyperlipidemia
� statin
#DVT prophylaxis
� Eliquis
More than 30 minutes spent in discharge including
Final examination of the patient
Summarizing hospital stay
Instructions for continuing care to all relevant caregivers
Preparation of discharge records, prescriptions, and referral forms
Total time spent (35 in minutes):
Anticipated Discharge: Today
Subjective/Interval History
-
Date of Service: July 21, 2023
no acute events
Objective Data
-
Labs:
Laboratory Results
07/21/23 07/21/23 07/21/23
01:10 07:45 16:00
WBC 7.8
Hgb 14.6
Hct 41.5
Plt Count 219
APTT 88.7 H 64.5 H Pending
Sodium 136
Potassium 4.1
Chloride 105
Carbon Dioxide 27
BUN 20
Creatinine 0.8
Glucose 124 H
Calcium 8.4
Vital Signs:
Vital Signs
Temp Pulse Resp BP Pulse Ox
98.1 F 70 18 144/88 95
07/21/23 07:04 07/21/23 07:04 07/21/23 07:04 07/21/23 07:04 07/21/23 07:04
I&O
07/20/23 07/21/23 07/22/23
06:59 06:59 06:59
Intake Total 636 / 636 560 / 560
Output Total 500 / 500 600 / 600
Balance 136 / 136 -40 / -40
Review of Systems
-
History Source: Patient
All other systems: Not reviewed unless documented
Data Reviewed
-
CT Scan: Image personally visualized and interpreted and Report Reviewed by me
Labs: Labs Reviewed by me
--- NOTE | 2023-07-21 10:58 | W.DS.TRANS ---
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
-
Discharge Instructions:
Discharge Diagnosis/Procedures
#Acute hypoxic respiratory failure
#Submassive pulm embolism
#Saddle pulm embolism
Diet Low Cholesterol,Low Fat
Activity No strenuous activity
Additional Activity No strenuous activity until cleared by PCP,
pulmonology. no strenuous activity, heavy
lifting for the next 2 weeks
Instructions:
Stand-Alone Forms:
Changes to Home Medications: Yes
Discharge Medications:
DC Medications w/original date entered in [facility]
ascorbic acid (vitamin C) 500 mg tablet (Vitamin C) 500 mg PO DAILY Supplement 07/19/23
carvedilol 25 mg tablet (Coreg) 25 mg PO BID Blood Pressure 07/19/23
coQ10 (ubiquinol) 100 mg capsule 100 mg PO DAILY Supplement 07/19/23
finasteride 5 mg tablet 5 mg PO QPM Urinary Issue 07/19/23
losartan 50 mg tablet 50 mg PO QPM Blood Pressure 07/19/23
omega 9-tvf-bgg-fish oil 1,000 mg (120 mg-180 mg) capsule (Fish Oil) 1 cap PO DAILY Supplement 07/19/23
omega 1-gmk-ikz-fish oil 1,000 mg (120 mg-180 mg) capsule (Fish Oil) 2 cap PO QPM Supplement 07/19/23
simvastatin 20 mg tablet (Zocor) 20 mg PO QPM High Cholesterol 07/19/23
therapeutic multivitamin 1 tab PO DAILY Supplement 07/19/23
apixaban 5 mg (74 tabs) tablets in a dose pack (Eliquis DVT-PE Treat 30D Start) See Rx Instructions PO .COMPLEX #74 ea 07/21/23
Home Medication Changes
apixaban 5 mg (74 tabs) tablets in a dose pack (Eliquis DVT-PE Treat 30D Start) See Rx Instructions PO .COMPLEX #74 ea 07/21/23
Hold losartan for now until cleared by pcp/pulm
Pending Results: No
[2023-07-21 11:13] VITALS: BP 117/81
[2023-07-21] MEDS: ELIQUIS 10 MG PO (11:31)
--- NOTE | 2023-07-21 12:37 | W.PN.PUL3 ---
Today's Communication / Plan
-
Reviewed care plan with patient and family
Discharge planning per team
Outpatient pulmonary FU recommended
Assessment
-
68 old male with past med history of recent COVID-19 (about 1 week ago) who presents with shortness of breath.� Per EMS, patient was hypoxic to the 70s and required 4 L/min nasal cannula with resulting SpO2 95%.� In the ER patient required 3 L/min
nasal cannula with SpO2 95%, BP 136/98, RR: 20, HR: 72 and afebrile to 97.7 �F.� Patient was in respiratory distress at rest.� Initial CXR showed no evidence of acute cardiopulmonary process.� CTA chest was positive for bilateral/saddle pulmonary
embolism with large embolic burden and evidence of RV strain.� Labs were significant for elevated troponin of 0.1, proBNP was elevated to 15, Hb was 16.8, platelet count 188.� Patient started on heparin infusion and a PERT alert was called.�
Wet Sander/pulmonary services consulted for additional recommendations.
Impression:
Submassive saddle pulmonary embolism with high risk features including radiographic/chemical evidence of RV strain
Elevated troponin -likely type II AR in the setting of acute saddle PE
Acute hypoxic respite failure due to PE
Recent COVID-19 infection
RLE DVT
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
History of diverticulosis
Hypertension
BPH
Overweight
Plan:
Placed on 3L NC, weaned to RA
Not known to be on home O2
Home O2 eval can be obtained if needed
No prior known history of lung disease
New PE noted, s/p successful suction thrombectomy by IR 07/19/23 of left main with reduction of burden of saddle PE
R side could not be accessed, resumed on IV heparin
Can be eventually transitioned to OAC
Trend troponin until begins to downtrend
Maintain MAP>65
Monitor for any sudden drop in SBP >15-20% or sudden rise in HR >120bpm as this could indicate developing obstructive shock
Replete K>3.5, Mg>1.8, PO4>3
Check TTE to assess RV function--normal, mild-mod TR est PAP 45-50 (possible RAMSEY cause)
Check LE duplex--RLE DVT noted
We discussed role of OAC and eventual outpatient pulmonary FU for further management
Can obtain PFT/6MWT in office
Can eval sleep risk, HST as OP as well
Recent COVID illness, we discussed independent risk for VTE associated with this
Denies prior history of VTE, family history
Notes that he tested negative at home prior to arrival, can likely d/c isolation
Reviewed plan with patient and family today
Diagnostic Data
CXR 07-19-2023:�No active cardiopulmonary disease.
CTA Chest 07-19-2023:�Examination is positive for bilateral pulmonary embolism, with large embolic burden. Evidence for right heart strain with enlargement of the right ventricle and straightening of the interventricular septum.
ECHO 07/20/22- �Normal left ventricular size, wall thickness and systolic function.�Estimated ejection fraction is 55-60%.�No mitral regurgitation is seen.�No aortic regurgitation is seen.�Mild to moderate tricuspid regurgitation.
Estimated pulmonary artery pressure of 45-50 mmHg assuming a right atrial�pressure of 3 mmHg.�No pulmonic regurgitation� is seen.�No pericardial effusion.�Normal right ventricular size and function.�No prior echocardiogram available for comparison
�
Subjective Data
-
Date of Service:
Date of Service: July 21, 2023
Chief Complaint: Pulmonary Follow Up
Subjective:
patient seen, no acute events on
on RA, family at bedside
Objective Data
Data Reviewed
Vital Signs / I&O / Oxygen:
Vital Signs
Temp Pulse Resp BP Pulse Ox
98.1 F 76 14 117/81 97
07/21/23 11:13 07/21/23 11:13 07/21/23 11:13 07/21/23 11:13 07/21/23 11:13
Intake and Output
07/20/23 07/21/23 07/22/23
06:59 06:59 06:59
Intake Total 636 / 636 560 / 560
Output Total 500 / 500 600 / 600
Balance 136 / 136 -40 / -40
SaO2 97
Nasal Cannula flow liters per 3
minute
Physical Exam
General: Comfortable and Other (NAD)
HEENT: Normocephalic, Anicteric and Moist Mucous Membranes
Cardiovascular: S1-S2 and Regular Rhythm
Respiratory: Clear and Non-Labored Respirations
GI: Soft, Non Distended, Non Tender and Normal Bowel Sounds
Neurology: Awake, Alert, Oriented, AO x 3 and No Motor Deficits
Skin: Warm, Dry and Good Color
Labs/Micro/Reports
Lab Data
07/21/23 01:10
07/21/23 01:10
Laboratory Results
07/20/23 07/21/23 07/21/23
18:01 01:10 07:45
APTT 140.5 H 88.7 H 64.5 H
--- NOTE | 2023-07-21 12:43 | PTCARENOTE ---
Discussed discharge information with Pt and at bedside. Iv access and tele monitor removed. Belongings from room taken with Pt. Staff wheeled Pt to front lobby.
--- NOTE | 2023-07-21 13:04 | CM ---
Patient has been medically cleared for discharge to home with no additional skilled services. will transport home.
== END 2023-07-21 12:40 | disposition home or self-care (01) | DRG 163 ==
LOC: 2 NORTH 14:06
PROVIDERS: Physician Assistant; Radiology Vascular & Interventional Radiology; ADMITTING PHYSICIAN Internal Medicine; EMERGENCY PHYSICIAN Emergency Medicine; FAMILY PHYSICIAN Family Medicine; OTHER PHYSICIAN Internal Medicine Critical Care Medicine
PROC: 02CR3ZZ Extirpation of Matter from Left Pulmonary Artery, Percutaneous Approach (ICD-10-PCS; 2023-07-19)
DX: I26.92 Saddle embolus of pulmonary artery without acute cor pulmonale (principal); J96.01 Acute respiratory failure with hypoxia; U07.1 COVID-19; I82.401 Acute embolism and thrombosis of unspecified deep veins of right lower extremity; I10 Essential (primary) hypertension; E78.00 Pure hypercholesterolemia, unspecified; N40.0 Benign prostatic hyperplasia without lower urinary tract symptoms; E66.3 Overweight; I07.1 Rheumatic tricuspid insufficiency; Z87.19 Personal history of other diseases of the digestive system; Z68.27 Body mass index [BMI] 27.0-27.9, adult
CPT/HCPCS: 36015; 36620; 37184; 71046; 71275; 75743; 76937; 80048; 80053; 83880; 84484; 85025; 85027; 85610; 85730; 93005; 93306; 93970; 96374; 97162; 97166; 99152; 99153; 99291; C1769; C1887; Q9967

== ENCOUNTER → 2023-09-13 08:18 | Outpatient (REF) | payer MEDICARE, SELFPAY | LOC: RCS 08:18 | PROVIDERS: ATTENDING PHYSICIAN Internal Medicine Critical Care Medicine; FAMILY PHYSICIAN Family Medicine | DX: I26.99 Other pulmonary embolism without acute cor pulmonale (principal); I27.20 Pulmonary hypertension, unspecified | CPT/HCPCS: 93306 ==

== ENCOUNTER → 2023-10-07 14:30 | Outpatient (REF) | payer MEDICARE, SELFPAY | LOC: CLAB 14:30 | PROVIDERS: ATTENDING PHYSICIAN Otolaryngology | DX: Z01.10 Encounter for examination of ears and hearing without abnormal findings (principal) | CPT/HCPCS: 87070 ==

== ENCOUNTER → 2023-10-17 13:32 | Outpatient (REF) | payer MEDICARE, SELFPAY | LOC: RAD 13:32 | PROVIDERS: ATTENDING PHYSICIAN Internal Medicine Hematology & Oncology; FAMILY PHYSICIAN Family Medicine | DX: I82.401 Acute embolism and thrombosis of unspecified deep veins of right lower extremity (principal) | CPT/HCPCS: 93971 ==

== ENCOUNTER → 2024-09-17 13:07 | Outpatient (REF) | payer MEDICARE, SELFPAY | LOC: CLAB 13:07 | PROVIDERS: ATTENDING PHYSICIAN Physician Assistant | DX: H65.199 Other acute nonsuppurative otitis media, unspecified ear (principal) | CPT/HCPCS: 87070; 87147 ==